=== PATIENT | female | born 1940 | race African-American/Black ===

== ENCOUNTER 2020-11-23 08:51 | Inpatient (IN) | payer OTHER, BC ==
[~2020-11-23] VITALS: Ht 170.2 cm; Wt 120.1 kg
[2020-11-23] VITALS (25 sets, daily range): BP systolic 88–208; BP diastolic 36–130
[2020-11-23 09:33] LABS: MCH 26.6 pg (26.0-34.0)
[2020-11-23 09:34] LABS: MCHC 30.9 g/dL (28.0-37.0); MCV 86.2 fL (80.0-100.0); RBC 2.34 mil/uL (4.20-5.00); WBC 6.4 thou/uL (4.0-11.0)
[2020-11-23 09:39] LABS: HEMATOCRIT 20.1 % (37.0-47.0); HEMOGLOBIN 6.2 gm/dL (12.0-15.0)
[2020-11-23 09:44] LABS: CALCIUM 8.1 mg/dL (8.5-10.1); CREATININE 1.8 mg/dL (0.6-1.0); POTASSIUM 3.7 mmol/L (3.5-5.1)
[2020-11-23 09:49] LABS: TOTAL BILIRUBIN 0.5 mg/dL (0.2-1.0); TOTAL PROTEIN 4.9 g/dL (6.4-8.2)
--- NOTE | 2020-11-23 12:33 | NUR ---
VAT ASKED TO PLACE ML ON PT IN ER THAT WAS BLEEDING. KRIS CEPHALIC WAS WIDELY PATENT WITH USG. 4FR POWER ML TRIMMED TO 10CM INSERTED TO 0CM WITH BRISK BR. PT TOLERATED WELL. ML RELEASED FOR IMMEDIATE USE PER PROTOCOL TO RN
--- NOTE | 2020-11-23 13:30 | NUR ---
1330 PT ADMITTED TO 244. PLACED ON TELEMETRY, ASSESSMENT PREFORMED.
--- NOTE | 2020-11-23 15:20 | P ---
[facility] [place] [address] PROCEDURE REPORT Name: LESLY MILLER Room #: 244-P ADM IN M.R.#: [id number] Admission: 11/23/20 Attend Phys: Porfirio Berry MD Discharge: Date of : 39 Report #: [id number] THIS REPORT FOR: cc: Deric Frank James D. DO McElhinney, Christian C. MD ~ DATE OF SERVICE: 11/23/2020 PROCEDURE PERFORMED: Upper endoscopy with bleeding control. HISTORY OF PRESENT ILLNESS: The patient is an 80-year-old female who this morning had a large bowel movement with bleeding, followed by multiple episodes of hematemesis. Reportedly, no previous history of GI bleed. The stool initially was dark red in color, began vomiting bright red blood. She does report some mild abdominal discomfort. She has been on Plavix. Her admit hemoglobin was 6.2. Previous COVID pneumonia on 10/13. No previous history of upper endoscopy per the patient. The patient is on 4 liters of O2 at her baseline. Plan is for upper endoscopy. DESCRIPTION OF PROCEDURE: The risks and benefits of the procedure were explained to the patient, those risks including but not limited to bleeding, perforation, the risk of sedation. She understood these risks and gave informed consent. The procedure was performed in the operating room under general anesthesia. Next, using a standard Olympus upper endoscope, the scope was placed in the patient's mouth and advanced under direct vision through the esophagus, stomach and into the second portion of the duodenum. Upon entering the esophagus, there was obvious bright red blood throughout. Multiple washings and aspirations were performed. No stigmata of bleeding from the esophagus was noted. Upon entering the stomach, multiple large clots were noted in the gastric fundus, which limited visualization as well as bright red blood within the fundus. This was aspirated away. The gastric antrum showed a large clot exiting the pylorus into the antrum. I was able to advance the scope into the duodenal bulb. Multiple washings and aspirations were performed eventually. 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 This was approximately 2.5 to 3 cm in diameter, had multiple black eschars, had an adherent clot. Eventually, I was able to remove this clot. There was only a small amount of bleeding as above was removed. I then injected the area with 2 mL of epinephrine. No further bleeding was noted. At this point, a 7-Tamazight bipolar cautery was then used to treat the area as well and no further bleeding after cauterization. The scope was then advanced into the second portion of the duodenum other than old blood. No other ulcerations were noted. The scope was then brought back up into the patient's stomach. I then aspirated away approximately 200 mL of old liquid blood, again large clots remained in the fundus. Areas of the gastric mucosa that were visualized appeared normal, but again visualization was limited due to clots. [address] [address] PROCEDURE REPORT Name: LESLY MILLER Room #: 244-P ADM IN M.R.#: [id number] Admission: 11/23/20 Attend Phys: Porfirio Berry MD Discharge: Date of : 39 Report #: [id number] At this point, the scope was then withdrawn and the procedure terminated. The patient tolerated the procedure well. IMPRESSION: 1. Large duodenal bulb ulcer involving the bulb and first portion with adherent clot, status post epinephrine and cautery as described above. 2. Large clots and old blood within the stomach. 3. Visualized portions of the stomach were normal. 4. Esophagus was normal. RECOMMENDATIONS: 1. Continue to monitor hemoglobin closely. 2. Continue PPI drip. 3. We will add Carafate in the near future, would continue n.p.o. for today. We will need close monitoring. Thank you for allowing me to participate in her care. <ELECTRONICALLY SIGNED> By: Balta Rock MD 11/23/20 1520 1218 1229 Balta Rock MD /nt
[2020-11-23 17:11] LABS: HEMOGLOBIN 5.8 gm/dL (12.0-15.0)
[2020-11-23] MEDS ORDERED: PLAVIX 75 MG TA75 MG PO (18:21)
[2020-11-23] MEDS ORDERED: ALLOPURINOL 10100 M1 PO (18:22)
[2020-11-23] MEDS ORDERED: CHILDREN'S ASPI81 M1 PO (18:22)
[2020-11-23] MEDS ORDERED: CARVEDILOL25 MG PO (18:23)
[2020-11-23] MEDS ORDERED: CYMBALTA60 MG PO (18:23)
[2020-11-23] MEDS ORDERED: FOLIC ACID1 MG PO (18:24)
[2020-11-23] MEDS ORDERED: IRON325 M1 PO (18:24)
[2020-11-23] MEDS ORDERED: LASIX 40 MG TAB40 MG PO (18:25)
[2020-11-23] MEDS ORDERED: NIFEDIPINE ER90 M1 PO (18:26)
[2020-11-23] MEDS ORDERED: HYDRALAZINE HC100 MG PO (18:26)
[2020-11-23] MEDS ORDERED: TRAMADOL 50 MG50 MG PO (18:27)
--- NOTE | 2020-11-23 18:28 | NUR ---
MED RECONCILIATION PREFORMED BASED OFF OF PHYSICIANS H&P. WILL NEED VALIDATION PER CORRECTION.
--- NOTE | 2020-11-23 18:29 | NUR ---
PT NOT PROGRESSION D/T CONTINUED DOWN TRENDING HGB AND ADMINISTRAION OF MORE BLOOD PRODUCTS. PLAN OF CARE IT TO CONTINUE MONITORING H&H AND VS.
--- NOTE | 2020-11-23 19:26 | NUR ---
PT ARRIVED TO THE UNIT FROM THE OR#3 WITH TWO STAFF MEMBER ESCORT ON A ED GURNEY WITH TELE MONITORING. UPON ARRIVAL PT WAS SITUATED, WOUND PICTURES WERE TAKEN AND SHE WAS FOUND TO HAVE SCATTERED WOUNDS ON HER BUTTOCKS WELL HER GROIN. HER OVERALL GROOMING WAS NOT WELL KEPT IT WAS EVIDENT BY SCATTERED WOUNDS AND MALODOR. PT WAS SEDATED AT THE TIME OF ARRIVAL SHE HAD BLOODY STOOL OVER HER, CHLORHEXEDINE BATH WAS GIVEN TO THE PT. SHE ARRIVED ON 10L/NC AND WAS TOLD TO THIS RN THAT SHE WAS ON 4L/NC AT THE ED. ORDERS FOR THE PT ARRIVED LATER, SHE WAS SEEN BY THE GI GROUP. PT'S SON WAS UPDATED, APPARENTLY JOEY [facility] TOLD THE SON THAT PT WENT TO RESEARCH AND WAS WORRIED ALL DAY. RN PROVIDED UPDATE WELL RECEIVED CONSENT FOR TWO MORE UNITS OF PRBC INFUSION. PT HAD NOT ARRIVED WITH ANY NOTABLE BELONGINGS. PT HAD A HARDENED MASS AT THE R SIDE OF STOMACH WHICH WAS PAINFUL TO THE TOUCH, STATED THAT IT WAS DEPENDANT ANSARCA. ZOFRAN WAS ADMINISTERED X1. ADMISSION WAS DONE BY ORIENTING RN. PT REMAINS ON NPO AT THIS TIME. RN SIGNING OFF
[2020-11-23] MEDS ORDERED: ARIMIDEX1 MG PO (23:02)
[2020-11-23] MEDS ORDERED: AYR SALINE50 ML NASAL (23:03)
[2020-11-23] MEDS ORDERED: COMBIVENT INH (23:04)
[2020-11-23] MEDS ORDERED: EUCERIN CREME57 GM TOP (23:07)
[2020-11-23] MEDS ORDERED: HUMALOG100 UNIT/1 SUBQ (23:07)
[2020-11-23] MEDS ORDERED: MECLIZINE HCL25 M1 PO (23:08)
[2020-11-23] MEDS ORDERED: BIDIL TABLET1 EACH PO (23:08)
[2020-11-23] MEDS ORDERED: NYSTATIN1 EAC2 TOP (23:10)
[2020-11-24] VITALS (21 sets, daily range): BP systolic 126–207; BP diastolic 37–87
[2020-11-24 05:42] LABS: URINE BILIRUBIN NEGATIVE (Negative); URINE BLOOD NEGATIVE (Negative); URINE CLARITY CLOUDY; URINE COLOR YELLOW; URINE GLUCOSE-RANDOM* NEGATIVE (Negative); URINE KETONES NEGATIVE (Negative); URINE NITRITE-REFLEX NEGATIVE (Negative); URINE PROTEIN (DIPSTICK) TRACE (Negative); URINE SPECIFIC GRAVITY 1.025 (1.005-1.035); URINE UROBILINOGEN 0.2 E.U./dl (0.2-1.0)
[2020-11-24 05:49] LABS: HEMATOCRIT 23.4 % (37.0-47.0); HEMOGLOBIN 7.6 gm/dL (12.0-15.0); MCH 28.5 pg (26.0-34.0); MCHC 32.4 g/dL (28.0-37.0); MCV 87.8 fL (80.0-100.0); RBC 2.66 mil/uL (4.20-5.00)
[2020-11-24 05:49] LABS: URINE LEUKOCYTES-REFLEX 3+ (Negative)
[2020-11-24 06:03] LABS: CALCIUM 7.6 mg/dL (8.5-10.1); CREATININE 1.8 mg/dL (0.6-1.0); POTASSIUM 3.7 mmol/L (3.5-5.1)
[2020-11-24 06:13] LABS: CASTS None Seen /LPF (None Seen); SQUAMOUS 0-3 Few /LPF (0-3)
[2020-11-24 06:14] LABS: BACTERIA-REFLEX >30 Many /HPF (None Seen); CRYSTALS None Seen /LPF (None Seen); MUCUS 0-3 Light strn/LPF (None Seen); URINE RBC 0-2 Rare /HPF (0-2); URINE WBC-REFLEX >25 Many /HPF (0-5); WBC CLUMPS Moderate (None Seen)
[2020-11-24 16:59] LABS: HEMATOCRIT 22.3 % (37.0-47.0); HEMOGLOBIN 7.3 gm/dL (12.0-15.0)
--- NOTE | 2020-11-24 17:00 | NUR ---
Case opened to follow for dc planning. Pt is a&ox4 and indicates that she has been at [facility] for 3 weeks rehabing. Her goal is to return home. She lives alone. She has had hh per [facility] in the past. She does not want to return to SNF if she can go back home with HH. She is not sure if her son would be agreeable as she does live alone. Pt is being treated for GI bleed and GI consult is in progress. Will ask for therapy evals and update [facility] should she need additional skilled rehab at wi. Department Director did offer a SNF listing should she want to consider another SNF. She declined but noted that she has [employer] as her secondary ins;medicare is primary. Will follow along.
[2020-11-25 05:04] VITALS: BP 142/60
[2020-11-25 05:38] LABS: HEMATOCRIT 21.7 % (37.0-47.0); HEMOGLOBIN 7.1 gm/dL (12.0-15.0); MCH 29.1 pg (26.0-34.0); MCHC 32.7 g/dL (28.0-37.0); MCV 88.8 fL (80.0-100.0); RBC 2.45 mil/uL (4.20-5.00); RDW 17.5 % (10.5-14.5); WBC 9.7 thou/uL (4.0-11.0)
[2020-11-25 05:40] LABS: CALCIUM 7.8 mg/dL (8.5-10.1); CREATININE 1.7 mg/dL (0.6-1.0); POTASSIUM 3.8 mmol/L (3.5-5.1)
[2020-11-25 07:37] VITALS: BP 155/52
--- NOTE | 2020-11-25 07:48 | NUR ---
ASSESSMENTS CHARTED, MEDS CHARTED GIVEN. PATIENT RESTING IN BED DURING SHIFT. PATIENT STATES SHE HAS NOT GOTTEN OUT OF BED IN A WHILE. ON PROTONICS AND NORMAL SALINE DRIPS DURING SHIFT. PATIENT ON 6 LITERS DURING SHIFT. PRESSURE WOUNDS ON BUTTOCKS AND THIGHS WERE WASHED AND TREATED WITH BARRIER CREAM. FALL PRECAUTIONS IN PLACE DURING SHIFT.
[2020-11-25 11:43] VITALS: BP 143/57
--- NOTE | 2020-11-25 11:54 | NUR ---
Case discussed with the care team. Advancing diet and therapy working with the pt. They are recommending returning to snf for continued therapies as the pt would need to be indep to dc home with josep. Anika of updated. Dc life care planner to fax clinical updated. Possible dc Sat/Sun. Anika's liason Riri can be reached at [phone] to coordinate. A chart copy would be needed and orders faxed to the facility [phone] and report called by nursing. Pt/son updated on recommendations for return to the SNF and agreeable.
--- NOTE | 2020-11-25 12:23 | NUR ---
PT ALERT AND ORIENTED TIMES FOUR. VSS, PROTONIX AND IVF INFUSING PER ORDER. SILVA TO DD. PT DENIES PAIN AT THIS TIME. PT TOLERATES MEDS AND FULL LIQUID DIET. PT WORKED WELL WITH PT/OT TODAY AND IS UP SITTING IN THE CHAIR. PT PROGRESSING TOWARDS POC GOALS. POSSIBLE PLANS TO DISCHARGE BACK TO SNF TOMORROW.
--- NOTE | 2020-11-25 14:24 | NUR ---
FAXED REFERRAL TO [facility] AND [facility]. YVETTE/ADMISSIONS OF [facility] CONFIRMED THEY RECEIVED AND CAN ACCEPT PATIENT PER BIOINFORMATICS SUPPORT SPECIALIST. WILL CONFIRM WITH [facility]/ADMISSIONS OF [facility] THAT THEY RECEIVED AND THEIR BED AVAILABILITY. [facility] P [phone]; FAX [phone] [facility] P [phone]; FAX [phone]
[2020-11-25 15:49] LABS: HEMATOCRIT 25.8 % (37.0-47.0); HEMOGLOBIN 8.1 gm/dL (12.0-15.0)
[2020-11-25 16:25] VITALS: BP 159/45
[2020-11-25 19:25] VITALS: BP 143/48
[2020-11-25 23:25] VITALS: BP 132/47
[2020-11-26] VITALS (8 sets, daily range): BP systolic 100–151; BP diastolic 42–56
--- NOTE | 2020-11-26 03:27 | NUR ---
PT IS ALERT AND ORIENTED X4. LUNGS ARE DIMINISHED. ON 4LITERS NASAL CANULA. SINUS RHYTHM ON THE TOWEL ROLLING MACHINE OPERATOR. TURN Q2 HOURS AND Z-GAURD TO COCCYX AREA. REPOSITIOIN WITH PILLOWS. SILVA TO DD NOTED NO BM NOTED. BILATERAL FEET EDEMA NOTED 3 PLUS. PAIN MEDS GIVEN FOR PAIN IN COCCYX. SLEEPING AFTER MEDS GIVEN. CALL LIGHT WITHIN REACH IF NEEDS ASSISTANCE PER NURSING
[2020-11-26 04:17] LABS: RDW 17.7 % (10.5-14.5)
[2020-11-26 04:18] LABS: HEMOGLOBIN 6.8 gm/dL (12.0-15.0); MCHC 32.3 g/dL (28.0-37.0); MCV 89.7 fL (80.0-100.0); RBC 2.34 mil/uL (4.20-5.00)
[2020-11-26 16:16] LABS: HEMATOCRIT 26.6 % (37.0-47.0); HEMOGLOBIN 8.5 gm/dL (12.0-15.0)
--- NOTE | 2020-11-26 19:38 | NUR ---
ASSUMMED PT CARE AT APPROXIMATELY 0700. PT A&O X4. ASSESSMENT CHARTED. FALL PRECAUTIONS IN PLACE. PT DENIES HAVING CHEST PAIN. PT DENIES HAVING SOB. PT STATED SHE HAD CHRONIC BACK AND HIP PAIN. PT RECEIVED ANALGESICS. PT STATED ANALGESICS HELPED RELIEVE PAIN. INFORMED GI OF LOW HGB. NEW ORDERS RECEIVED TO TRANSFUSE 2 UNITS BLOOD. INFORMED PT ABOUT POC. PT STATED UNDERSTANDING AND DENIED HAVING FURTHER CONCERNS. INFORMED GI OF PT HAVING MODERATE AMOUNT OF BLOOD AT 1800. GI STATED NO NEW ORDERS AND TO CONTINUE TO MONITOR. HGB STABLE. PT COMFORTABLE IN BED. PT DENIES HAVING FURTHER CONCERNS.
[2020-11-27 04:15] VITALS: BP 141/71
[2020-11-27 07:41] VITALS: BP 145/56
--- NOTE | 2020-11-27 07:52 | NUR ---
ASSESSMENTS CHARTED,MEDS CHARTED GIVEN. PATIENT RESTING IN BED. C/O PAIN ON BUTTOCKS, WOUNDS WERE CLEANED AND DRESSED WITH ZGUARD. ON PROTONIX DRIP AND NORMAL SALINE AT 75ML/HR. RECEIVED 2 UNITS OF BLOOD YESTERDAY. PATIENTS BED IS BROKEN HEAD WILL NOT RISE. NEED NEW BED TO TRANSFER PATIENT TO. PATIENT HOLDING OFF AM PO MEDS UNTIL SHE CAN GET HER HEAD ELEVATED. WHEN PATIENT IS STABLE, [facility].
[2020-11-27 10:52] LABS: RBC 3.25 mil/uL (4.20-5.00)
[2020-11-27 10:59] LABS: CALCIUM 8.3 mg/dL (8.5-10.1); CREATININE 1.6 mg/dL (0.6-1.0)
[2020-11-27 11:00] LABS: HEMATOCRIT 30.5 % (37.0-47.0); HEMOGLOBIN 9.8 gm/dL (12.0-15.0); MCHC 31.9 g/dL (28.0-37.0); MCV 93.8 fL (80.0-100.0); RDW 17.8 % (10.5-14.5); WBC 7.9 thou/uL (4.0-11.0)
[2020-11-27 11:30] VITALS: BP 139/66
--- NOTE | 2020-11-27 13:09 | NUR ---
CARE ASSUMED AT 0700, PT ALERT AND ORIENTED X4, DENIES ANY NAUSEA AND VOMITTING. PT COMPLAINS OF BUTTOCKS PAIN, PAIN MED GIVEN PER ORDER.REPOSITION EVERY 2 HOURS. NO BLOODY BM SO FAR TTHIS SHIFT. PT HAS PROTONIX DRIP AND NS RUNNING. ASSESSMENT AND VS STABLE. USES CALL LIGTH APPROPRIATELY. FALL PRECAUTIONS IN PLACE. DENIES ANY NEEDS JYOTHI. WILL CONTINUE TO MONITOR.
[2020-11-27 16:23] VITALS: BP 138/63
--- NOTE | 2020-11-27 16:50 | NUR ---
PATIENT NOT DISCHARGING TO [facility] TODAY DUE TO CHANGE OF STATUS. DIMINISHING CONDITIONS INCLUDING LOW Hcg AND WOUND CARE CONSULT. CM DIRECTOR CONTACTED [facility]. [facility] P [phone]; FAX [phone]
[2020-11-27 20:30] VITALS: BP 192/76
[2020-11-28] VITALS (7 sets, daily range): BP systolic 117–183; BP diastolic 57–90
--- NOTE | 2020-11-28 04:44 | NUR ---
ASSUMED PT CARE AT 1900. VSS. PT RESTING WELL. REFUSED TURNS. NO ISSUES OVER NOC, WILL CONTINUE TO MONITOR
[2020-11-28 05:49] LABS: CALCIUM 8.8 mg/dL (8.5-10.1); CREATININE 1.3 mg/dL (0.6-1.0); POTASSIUM 3.9 mmol/L (3.5-5.1)
--- NOTE | 2020-11-28 09:47 | NUR ---
Pt spoke with Dilia Reddy FOOD MIXER ASSEMBLER, and waas given facilities list, and BPCI letter. No facility chosen at this time.
--- NOTE | 2020-11-28 13:33 | NUR ---
ASSESSED PT FOR A PIV FOR IV ACCESS. PT HAS MULTIPLE VESSEL OCCLUSIONS IN BILAT ARMS WITH EDEMA. RECOMMEND A DX US SCAN AND A TICC IF IV ACCESS IS NEEDED. ADVISED RN
--- NOTE | 2020-11-28 15:54 | NUR ---
met with patient and alerted plan for discharge to [facility] in am.
--- NOTE | 2020-11-28 18:55 | NUR ---
DISCONTINUES SALINE LOCK HERSELF. IV TEAM ADVISES SHE HAS CLOTS IN BOTH ARMS. DR. JUDGE CALLED FOR ORAL ANTIBIOTIC. MOVED FROM BED TO SITTING POSITION TO BEDSIDE CHAIR, THEN BACK TO BED. SEVERAL TELEPHONE CONVERSATIONS WITH HER ADULT SON TO UPDATE. FALL PRECAUTIONS IN PLACE.
[2020-11-29 02:46] VITALS: BP 158/60
--- NOTE | 2020-11-29 03:51 | NUR ---
Assumed pt care at the chnage of shift, pt is awake, alert and oriented, vss, no iv access, ultrasound of the bilateral upper extremities obtained, atempted to get iv with no success, denies pain or sob, remains on 2l nc, bs stable, advanced to full liquid diet, meds given as per mar, denies any concerns at this time, will continue to monitor and follow poc, plan to dc to [facility] today
[2020-11-29 07:57] LABS: HEMATOCRIT 31.9 % (37.0-47.0); HEMOGLOBIN 10.2 gm/dL (12.0-15.0); MCH 29.1 pg (26.0-34.0); MCHC 31.9 g/dL (28.0-37.0); MCV 91.1 fL (80.0-100.0); RBC 3.5 mil/uL (4.20-5.00); RDW 17.3 % (10.5-14.5); WBC 8.1 thou/uL (4.0-11.0)
[2020-11-29 08:00] VITALS: BP 143/59
[2020-11-29 08:03] LABS: CALCIUM 9.3 mg/dL (8.5-10.1); CREATININE 1.3 mg/dL (0.6-1.0); POTASSIUM 3.8 mmol/L (3.5-5.1)
--- NOTE | 2020-11-29 09:19 | NUR ---
ASSUMED CARE AT 0700. PATIENT'S SON, TONIA, CALLED AND WAS SPOKEN TO FROM [id number] AND HE WAS UPDATED AND EDUCATED ON THE PATIENT'S CONDITION AND PLAN OF CARE.
--- NOTE | 2020-11-29 10:12 | HC ---
[facility] [place] [address] CONSULTATION Name: LESLY MILLER Room #: 206-P ADM IN M.R.#: [id number] Admission: 11/23/20 Attend Phys: Porfirio Berry MD Discharge: Date of : 39 Report #: [id number] THIS REPORT FOR: cc: Deric Frank James D. DO Althoff, Jeffrey R. MD ~ DATE OF SERVICE: 11/28/2020 CHIEF COMPLAINT: Gluteal ulcerations. HISTORY OF PRESENT ILLNESS: This is an 80-year-old female patient who lives in a shelter. She was admitted with rectal bleeding and hematemesis. Along the course of her stay someone noted that she had gluteal ulcerations and I have been consulted to see her today. The patient states that she has some discomfort there. Denies other complaints at this time. PAST MEDICAL HISTORY: Positive for hypertension as well as general deconditioning. The patient cannot provide much information about herself at this time. ALLERGIES: LISINOPRIL AND SPIRONOLACTONE. MEDICATIONS: Hydralazine, hydrocodone, meropenem, ondansetron, Protonix, sucralfate, carvedilol, clopidogrel, duloxetine, ferrous sulfate, folic acid, furosemide, insulin, nifedipine, and tramadol. SOCIAL HISTORY: The patient lives a nursing care facility. No recent history of alcohol or tobacco use. FAMILY HISTORY: Unknown. REVIEW OF SYSTEMS: CONSTITUTIONAL: The patient denies fever, chills or weight loss. NEUROLOGICAL: The patient denies focal weakness. ENT: The patient denies earache, nasal drainage or sore throat. CARDIOVASCULAR: The patient denies chest pain, palpitations or diaphoresis. PULMONARY: The patient denies cough or shortness of breath. GASTROINTESTINAL: The patient denies nausea, vomiting, diarrhea or abdominal pain. She did have hematemesis and some rectal bleeding on admission several days ago. GENITOURINARY: Denies frequency, urgency or dysuria. ORTHOPEDIC: The patient complains of pain in the gluteal region, notes swelling in her lower extremities. Other systems in a 14-point review of systems are negative. [address] [address] CONSULTATION Name: LESLY MILLER Room #: 206-P [facility] IN M.R.#: [id number] Admission: 11/23/20 Attend Phys: Porfirio Berry MD Discharge: Date of : 39 Report #: [id number] PHYSICAL EXAMINATION: VITAL SIGNS: At time include temperature 37.1, pulse 84, respiratory rate 16, and blood pressure __. GENERAL: This is a chronically ill-appearing female patient who appears to be in minimal distress. HEENT: Head normocephalic. Nose and throat are clear. NECK: Supple. LUNGS: Diminished. HEART: Regular, without murmur. ABDOMEN: Obese, soft, nontender. EXTREMITIES: She has mild skin fold dermatitis. Sacral-gluteal region demonstrates multiple scattered small superficial stage 3 pressure ulceration to the gluteal regions bilaterally. These do not appear to have occurred over bony prominences; however. Lower extremities demonstrate 3+ edema with some dry skin hyperkeratosis and some callusing on her heels. NEUROLOGIC: The patient is alert, level of orientation is difficult to assess. LABORATORY DATA: Include white blood cell count is 7.9 with hemoglobin of 9.8. Sodium is 145, potassium 3.9, chloride 110, CO2 of 28, BUN 27, creatinine 1.3, and glucose of 81. CLINICAL IMPRESSION: 1. Stage 3 gluteal pressure ulcerations, multiple scattered shallow. 2. Recent gastrointestinal bleeding. 3. Acute kidney injury. 4. Generalized debility. RECOMMENDATIONS: At this point in time, we will recommend moisture barrier cream with zinc oxide to the gluteal and sacral region twice daily, low air loss mattress with q. 2 hour turning and repositioning. She will need ongoing nutritional support. Continue medical management of her underlying medical issues. I appreciate being asked to see her in consultation. <ELECTRONICALLY SIGNED> By: Kavon Manzo MD 11/29/20 1012 1715 1944 Kavon Manzo MD /nt
[2020-11-29] MEDS ORDERED: PROTONIX 20 MG20 M1 PO (11:27)
[2020-11-29] MEDS ORDERED: CARAFATE 1 GM TA1 G1 PO (11:27)
[2020-11-29] MEDS ORDERED: CARVEDILOL25 MG PO (11:27)
--- NOTE | 2020-11-29 13:55 | NUR ---
PT DISCHARGING TODAY TO [facility] FAXED DC ORDERS/SUMMARY SPOKE WITH [facility]GG IN ADM SHE RECEIVED ORDERS AND ARRANGED TRANSPORT BY [facility] FOR [id number]. FAMILY NOTIFIED BY JULIANN (KYLAH) AND UNIT NOTIFIED CHART COPY PER US. RN TO CALL REPORT TO [phone].
--- NOTE | 2020-11-29 15:21 | NUR ---
ASSUMED CARE AT 0700. PATIENT DISCHARGED TO [facility] AT 1519. PATIENT LEFT WITH TRANSPORT WITH ALL BELONGINGS ACCOUNTED FOR.
== END 2020-11-29 15:19 | DRG 377 ==
LOC: ER 08:51 → ICU 13:50 → 2N 13:50 → ICU 11-24 06:17 → 2N 11-24 07:15
PROVIDERS: Emergency Medicine; Internal Medicine; ADMIT Hospitalist; ATTEND Hospitalist
PROC: 30233N1 Transfusion of Nonautologous Red Blood Cells into Peripheral Vein, Percutaneous Approach (ICD-10-PCS; principal; 2020-11-23)
PROC: 0W3P8ZZ Control Bleeding in Gastrointestinal Tract, Via Natural or Artificial Opening Endoscopic (ICD-10-PCS; principal; 2020-11-23)
PROC: B54MZZA Ultrasonography of Right Upper Extremity Veins, Guidance (ICD-10-PCS; principal; 2020-11-23)
PROC: 05HD33Z Insertion of Infusion Device into Right Cephalic Vein, Percutaneous Approach (ICD-10-PCS; principal; 2020-11-23)
DX: K27.4 Chronic or unspecified peptic ulcer, site unspecified, with hemorrhage (principal); L89.153 Pressure ulcer of sacral region, stage 3; N17.0 Acute kidney failure with tubular necrosis; E43 Unspecified severe protein-calorie malnutrition; D62 Acute posthemorrhagic anemia; Z68.41 Body mass index [BMI] 40.0-44.9, adult; M10.9 Gout, unspecified; E78.5 Hyperlipidemia, unspecified; N18.9 Chronic kidney disease, unspecified; I25.10 Atherosclerotic heart disease of native coronary artery without angina pectoris; I12.9 Hypertensive chronic kidney disease with stage 1 through stage 4 chronic kidney disease, or unspecified chronic kidney disease; I27.20 Pulmonary hypertension, unspecified; M81.0 Age-related osteoporosis without current pathological fracture; R63.4 Abnormal weight loss; G47.00 Insomnia, unspecified; F41.1 Generalized anxiety disorder; E66.01 Morbid (severe) obesity due to excess calories; Z20.822 Contact with and (suspected) exposure to COVID-19; Z88.8 Allergy status to other drugs, medicaments and biological substances; Z85.3 Personal history of malignant neoplasm of breast; Z86.16 Personal history of COVID-19; Z79.899 Other long term (current) drug therapy; Z79.01 Long term (current) use of anticoagulants; Z23 Encounter for immunization
CPT/HCPCS: 10078; 10081; 27000; 62110; 62900

== ENCOUNTER 2020-12-12 18:27 | Inpatient (IN) | payer OTHER, BC ==
[~2020-12-12] VITALS: Ht 165.1 cm; Wt 126.6 kg
[~2020-12-12 18:27] MED LIST: ALLOPURINOL 10100 M1 PO; ARIMIDEX1 MG PO; AYR SALINE50 ML NASAL; BIDIL TABLET1 EACH PO; CARAFATE 1 GM TA1 G1 PO; CARVEDILOL25 MG PO; CHILDREN'S ASPI81 M1 PO; COMBIVENT INH; CYMBALTA60 MG PO; EUCERIN CREME57 GM TOP; FOLIC ACID1 MG PO; HUMALOG100 UNIT/1 SUBQ; HYDRALAZINE HC100 MG PO; IRON325 M1 PO; LASIX 40 MG TAB40 MG PO; MECLIZINE HCL25 M1 PO; NIFEDIPINE ER90 M1 PO; NYSTATIN1 EAC2 TOP; PLAVIX 75 MG TA75 MG PO; PROTONIX 20 MG20 M1 PO; TRAMADOL 50 MG50 MG PO
[2020-12-12 18:28] VITALS: BP 104/57
[2020-12-12] MEDS ORDERED: VANCOCIN 125 M125 M1 PO (19:20)
[2020-12-12 19:48] LABS: APTT 29.1 Seconds (24.5-32.8); PROTIME 10.4 Seconds (9.3-11.4)
[2020-12-12 20:17] LABS: URINE BILIRUBIN 2+ (Negative); URINE BLOOD TRACE (Negative); URINE CLARITY CLEAR; URINE COLOR YELLOW; URINE GLUCOSE-RANDOM* NEGATIVE (Negative); URINE KETONES TRACE (Negative); URINE NITRITE-REFLEX NEGATIVE (Negative); URINE PROTEIN (DIPSTICK) TRACE (Negative); URINE SPECIFIC GRAVITY >= 1.030 (1.005-1.035); URINE UROBILINOGEN 0.2 E.U./dl (0.2-1.0)
[2020-12-12 20:24] LABS: URINE LEUKOCYTES-REFLEX 1+ (Negative)
[2020-12-12 20:28] LABS: CASTS None Seen /LPF (None Seen); SQUAMOUS 0-3 Few /LPF (0-3); URINE RBC 3-10 Few /HPF (0-2); URINE WBC-REFLEX 6-15 Few /HPF (0-5)
[2020-12-12 20:29] LABS: BACTERIA-REFLEX 1-9 Few /HPF (None Seen); CRYSTALS None Seen /LPF (None Seen); MUCUS 0-3 Light strn/LPF (None Seen)
[2020-12-12 20:30] LABS: YEAST-REFLEX Present (None Seen)
[2020-12-12 20:53] LABS: HEMATOCRIT 31.7 % (37.0-47.0); HEMOGLOBIN 10.1 gm/dL (12.0-15.0); MCH 28.9 pg (26.0-34.0); MCV 90.4 fL (80.0-100.0); PLATELET COUNT 324 thou/uL (150-400); RBC 3.51 mil/uL (4.20-5.00); RDW 18.4 % (10.5-14.5); WBC 21.1 thou/uL (4.0-11.0)
[2020-12-12 21:02] LABS: CALCIUM 9.1 mg/dL (8.5-10.1); CREATININE 4.3 mg/dL (0.6-1.0); POTASSIUM 3.7 mmol/L (3.5-5.1)
[2020-12-12 21:08] LABS: ALBUMIN 1.7 g/dL (3.4-5.0); TOTAL BILIRUBIN 0.5 mg/dL (0.2-1.0); TOTAL PROTEIN 5.3 g/dL (6.4-8.2)
[2020-12-12 21:46] LABS: ANISOCYTOSIS 2+; HYPOCHROMASIA 2+; POLYCHROMASIA 1+
[2020-12-12 22:47] VITALS: BP 127/49; BP 99/47
[2020-12-12 23:35] VITALS: BP 99/59
--- NOTE | 2020-12-13 01:34 | NUR ---
Admission completed. Pt sleeping on and off. Denies pain. Too sleepy to sign consent forms. Vitals stable-BP on the softer side. Afebrile. Pt is on 02/4l/nc and satting at >96%. no signs of resp distress. She just got a breathing treatment. Pt continues to have loose stools due to cdiff. Barrier cream applied to excoriated botton. open spot noted to left gluteal fold, pic will be taken.Pt is on IV fluids as well as ABTS.Scds applied.Fall prec in place.Call light within reach.Will continue with POC till EOS.
--- NOTE | 2020-12-13 07:03 | EKG ---
[place] [address] [address] [address] ELECTROCARDIOGRAM REPORT Name: LESLY MILLER Room #: 458-P ADM IN M.R.#: [id number] Admission: 12/12/20 Attend Phys: Trevor North Discharge: Date of : 39 Report #: [id number] [facility] ED Test Date: 2020-12-12 Test Time: 19:12:57 Pat Name: LESLY MILLER Department: Room: 458 Gender: F Funeral Home Manager: SAIRA : 1940 Requested By: Sumeet Irving Order Number: [id number] MD: Devin Samson Measurements Intervals [place] Rate: 111 P: AL: QRS: -17 QRSD: 90 T: 140 QT: 329 QTc: 447 Interpretive Statements Atrial fibrillation Borderline left axis deviation Low voltage, extremity leads Anteroseptal infarct, old Nonspecific T abnormalities, lateral leads No previous ECG available for comparison Electronically Signed On 12-13-2020 7:03:48 PROCESS STEWARD by Devin Samson [email or web address] <ELECTRONICALLY SIGNED> By: Devin Samson MD, [facility] 12/13/20702 11 11 Devin Samson MD, FACC /EPI
[2020-12-13 07:49] VITALS: BP 109/59
--- NOTE | 2020-12-13 09:37 | NUR ---
RD consult received for pt with chronic gluteal wound. Recently here early Nov with duodenal ulcer. Hx DM. Class III extreme obesity, BMI 46.5. Wts have been variable this past month 250-279 lb. Admit with TAVO, cdiff. Appetite fair. Will send Ensure Max 1x daily which provides 160 page and 30g protein. Low nutrition risk with appropriate nutrition interventions implemented
--- NOTE | 2020-12-13 13:34 | NUR ---
PT ADMITTED RLEATED TO ACUTE RENAL FAILURE/TAVO, CDIFF, PNA. CM REVIEWED CHART AND SPOKE WITH CARE TEAM. CM ATTEMTPED PC TO PT'S ROOM THIS DAY PT IS IN ISO FOR CDIFF. NO ANSWER. CM CALLED AND SPOKE WITH PT'S SON. HE INDICATED THAT PT HAD BEEN SKILLED OVER AT [facility]. SHE HAD GONE THERE FROM [facility] ON 11/29 HAVING BEEN AT A [facility] SKILLED PRIOR TO THAT. HE INDICATED THAT PT HAD BEEN LIVING IN A HOUSE ALONE PRIOR TO SKILLED STAYS WITH 1 STEPS TO ENTER AND NONE INSIDE. HE INDICATED THAT SHE HAD USED A WALKER TO ASSIST WITH MOBILITY. HE INIDCATED PT HAS EXPRESSED DESIRE TO BE ABLE TO RETURN HOME ONCE MEDICALLY STABLE BUT HE ISN'T SURE HOW REALISTIC THAT IS BASED ON HER MOBILITY. CM INDICATED THAT PT AND OT TO ASSESS AND MAKE RECOMMENDATIONS. HE INDICATED HE PLANS TO VISIT MOTHER HERE TOMORROW. CM TO FOLLOW INDICATED WITH DC PLANNING. PT HAS GI, ID, NEPH ALL CONSULTED.
--- NOTE | 2020-12-13 15:36 | NUR ---
VAT CONSULTED FOR ML. PT HAS VERY LARGE UPPER ARMS, DIFFICULTY FINDING VENOUS ACCESS. 4FR POWER ML TRIMMED TO 11CM INSERTED IN NAZ CEPHALIC TO 0CM. PT TOLERATED WELL. ML RELEASED FOR IMMEDIATE USE PER PROTOCOL.
[2020-12-13 15:47] LABS: HEMATOCRIT 32.7 % (37.0-47.0); HEMOGLOBIN 10.4 gm/dL (12.0-15.0); MCH 28.6 pg (26.0-34.0); MCHC 31.8 g/dL (28.0-37.0); MCV 90.1 fL (80.0-100.0); RBC 3.63 mil/uL (4.20-5.00); RDW 18.3 % (10.5-14.5); WBC 20.5 thou/uL (4.0-11.0)
--- NOTE | 2020-12-13 15:47 | NUR ---
FAXED CLINICAL UPDATE TO [facility] RECEIVED CONFIRMATION AND LEFT MSG WITH GREGG IN ADM.
[2020-12-13 15:48] VITALS: BP 111/59
--- NOTE | 2020-12-13 15:53 | NUR ---
ASSUMED CARE OF PATIENT AFTER REPORT. ASSESSMENT CHARTED. MEDICATIONS ADMINISTERED PER EMAR; CRUSHED IN APPLESAUCE. VSS. PATIENT IS ALERT AND ORIENTED TO SELF, PLACE AND SITUATION BUT FORGETFUL. MAKES NEEDS KNOWN. C/O PAIN AND DISCOMFORT ON BOTTOM. RELIEF NOTED AFTER REPOSITIONING. NEEDING ENCOURAGEMENT W EATING. FSBS LOW THIS SHIFT. PATIENT OFFERED SNACKS. SON CONTACTED AND UPDATED W PATIENT STATUS. LABS REDRAWN. NEW IV ACCESS; L UA MIDLINE W ABX INFUSING. PATIENT TIRED THIS SHIFT. CHANGED MULTIPLE TIMES. C-DIFF POSITIVE AND PRECAUTIONS TAKEN. AWAITING ANY NEW ORDERS FOR PATIENT. FALL PRECAUTIONS IN PLACE. WILL CONTINUE TO MONITOR AND FOLLOW PLAN OF CARE
--- NOTE | 2020-12-13 16:36 | HC ---
[facility] [place] [address] CONSULTATION Name: LESLY MILLER Room #: 458-P ADM IN M.R.#: [id number] Admission: 12/12/20 Attend Phys: Trevor North Discharge: Date of : 39 Report #: [id number] THIS REPORT FOR: cc: Hilario Mcpherson MD, Christopher B. MD Barry, Joseph W. MD ~ DATE OF SERVICE: 12/13/2020 INFECTIOUS DISEASE CONSULTATION ATTENDING PHYSICIAN: Dr. North. REASON FOR EVALUATION: Clostridium difficile colitis, pneumonitis, and complicated urinary tract infection. HISTORY OF SUBJECTIVE: Chart reviewed, patient examined. This is an 80-year-old woman with extensive medical history, was admitted in transfer from facility with complaints of progressive weakness a result of that labs were obtained, which showed a creatinine 4.1, marked leukocytosis with white count of 21,000. It is notable had been diagnosed with C. diff colitis. It is difficult to ascertain details of her history due to some mild encephalopathy. It is notable that she was hospitalized earlier this month with upper gastrointestinal hemorrhage and was confirmed to have a duodenal ulcer, which was cauterized October of this year, was diagnosed with COVID-19 infection as well. Recent testing was negative. During the evaluation in addition to the above was found to have urinalysis, which showed moderate pyuria. Albumin of 1.7. Lactic acid 1.2. CT of the abdomen and pelvis did show changes consistent with pancolitis. She was empirically started on oral vancomycin 125 p.o. 4 times a day and ceftriaxone. ALLERGIES: LISINOPRIL, SPIRONOLACTONE. CURRENT MEDICATIONS: Include ceftriaxone, allopurinol, duloxetine, ferrous sulfate, carvedilol, insulin lispro sliding scale, sucralfate, pantoprazole, oral vancomycin 125 p.o. q.i.d., ipratropium and albuterol inhaler, p.r.n. analgesics and antiemetics. PAST MEDICAL HISTORY: As described above, diabetes mellitus complicated by vasculopathy, has known hypertension, coronary artery disease, hyperlipidemia, chronic renal insufficiency, breast cancer, history of gout, previous COVID-19 infection with pneumonia, arthritis, chronic anemia, depression. SOCIAL HISTORY: Nonsmoker, no ethanol, no illicit drug use. FAMILY HISTORY: Noncontributory. [address] [place] [address] CONSULTATION Name: LESLY MILLER Room #: 458-P [facility] IN M.R.#: [id number] Admission: 12/12/20 Attend Phys: Trevor North Discharge: Date of : 39 Report #: [id number] REVIEW OF SYSTEMS: Otherwise, unremarkable. Denies significant pulmonary-related complaints, although she is on supplemental oxygen at 3 liters per nasal cannula. PHYSICAL EXAMINATION: GENERAL: Appears chronically ill and although she is obese, appears undernourished, [id number] distress. She is mildly encephalopathic. VITAL SIGNS: Temperature 97.4, pulse 110, respirations 18, blood pressure 109/59. SKIN: Warm, dry, no rashes. HEENT: Normocephalic. Extraocular muscles intact. NECK: Supple. Nasal cannula in place. LUNGS: Diminished breath sounds. Few scattered crackles at the bases. HEART: Regular, tachycardic. Has a soft systolic murmur. ABDOMEN: Mildly distended and somewhat firm. No overt peritoneal signs. GENITOURINARY AND RECTAL: Deferred. LABORATORY DATA: Blood cultures sterile thus far. CBC: White count 21.1, H and H 10.1 and 31.7, platelets of 324, CT abdomen and pelvis pancolitis, consulting right lower lobe infiltrate and medial left lower lobe infiltrate, some small pleural effusions, cardiomegaly with severe coronary artery calcification. Lactic acid 1.2. Electrolytes: Sodium 137, potassium 3.7, chloride 102, bicarbonate 27, anion gap of 8, BUN and creatinine 54 and 4.3, glucose of 77. AST of 22, ALT of 18, albumin 1.7, total protein 5.3. Estimated GFR of 12. Urinalysis, 1+ leukocytes, 6-15 white cells, evidence of budding yeast. ASSESSMENT AND PLAN: Clostridium difficile colitis based on history, I do not have the documentation. Secondly, likely complicated urinary tract infection. Third pneumonitis based on imaging and she is requiring supplemental oxygen. We will continue a combination medical regimen, increase the oral vancomycin to 500 p.o. q.i.d. At this point, it is difficult to ascertain whether she will respond, I would consider fidaxomicin, absence of improvement and/or potentially fecal transplant if this appears to be a more recurrent issue. Secondly, we will add additional antimicrobial therapy to cover pneumonitis just with discontinuing ceftriaxone, initiate cefepime, single dose of fluconazole as well given the micro and the urinalysis. She remains somewhat tenuous at this point. She is clearly malnourished. Try to optimize her nutritional status. We will add incentive spirometry, not quite clear what her baseline is at this point, earlier, urine function has deteriorated over the course of the last 2 weeks, [facility] [address] [place] [address] CONSULTATION Name: LESLY MILLER Room #: 458-P ADM IN M.R.#: [id number] Admission: 12/12/20 Attend Phys: Trevor North Discharge: Date of : 39 Report #: [id number] likely due to prerenal azotemia, suspect on the basis of dehydration. I would expect it to correct. Continue to monitor expectantly. <ELECTRONICALLY SIGNED> By: Bar Hartman MD 12/13/20 1636 [id number] Bar Hartman MD /nt
[2020-12-13 16:39] LABS: ALBUMIN 1.6 g/dL (3.4-5.0); CALCIUM 8.6 mg/dL (8.5-10.1); CREATININE 4.2 mg/dL (0.6-1.0); MAGNESIUM 1.6 mg/dL (1.8-2.4); PHOSPHORUS 4.8 mg/dL (2.6-4.7); POTASSIUM 4.5 mmol/L (3.5-5.1)
[2020-12-13 20:00] VITALS: BP 105/46
[2020-12-14 06:30] LABS: HEMATOCRIT 29.9 % (37.0-47.0); HEMOGLOBIN 9.2 gm/dL (12.0-15.0); MCHC 30.6 g/dL (28.0-37.0); MCV 91.4 fL (80.0-100.0); RBC 3.27 mil/uL (4.20-5.00); RDW 17.9 % (10.5-14.5); WBC 21.8 thou/uL (4.0-11.0)
[2020-12-14 06:37] LABS: CALCIUM 8.7 mg/dL (8.5-10.1); CREATININE 4.4 mg/dL (0.6-1.0)
[2020-12-14 06:39] LABS: ALBUMIN 1.4 g/dL (3.4-5.0); CALCIUM 8.5 mg/dL (8.5-10.1); CREATININE 4.4 mg/dL (0.6-1.0); PHOSPHORUS 4.4 mg/dL (2.6-4.7)
[2020-12-14 06:40] LABS: POTASSIUM 3.4 mmol/L (3.5-5.1); POTASSIUM 3.5 mmol/L (3.5-5.1)
[2020-12-14 07:35] VITALS: BP 105/49
--- NOTE | 2020-12-14 09:21 | NUR ---
[facility] 1900. PT/VITALS STABLE. INTERMITTENT BUTT PAIN WITH TYLENOL/REPOSITION FOR RLIEF. ASSESSMENT CHARTED. PROGRESING SLOWLY WITH POC. BS CONSISTENTLY LOW. PT NEEDS ENCOURAGEMENT TO EAT/POOR APPETITE. NO DISTRESS NOTED THROUGH THE NIGHT. PLAN IS TO CONTINUE WITH ABX TREATMENT AND FOLLOW WITH POC
--- NOTE | 2020-12-14 15:45 | NUR ---
CARE TEAM INDICATED THAT PT IS PROGRESSING TOWARD GOAL OF DISHCARGE. PT IS WORKING WITH PT AND OT. CARE TEAM MONITORING CREATININE WHICH IS CURRENTLY HIGH. NEPH CONSULTED AND FOLLOWING. PT ON ORAL VANC. CM PROVIDED UPDATE TO [facility]. CM TO FOLLOW INDICATED WITH DC PLANNING.
[2020-12-14 17:50] VITALS: BP 130/42; BP 89/36
--- NOTE | 2020-12-14 20:13 | NUR ---
Received awake on bed. Due medications given as prescribed, able to swallow meds w/o difficulty. On O2 at 3lpm via nasal cannula. On MS, no complains and signs of chest pain, crushing sensation and heaviness. Assisted in ADLs. On carb controlled diet- encouraged and assisted in eating and drinking, with poor appetite; no nausea, no vomiting and no abdominal pain noted. Aguirre inserted- draining well; output measured and recorded accordingly. With L upper arm midline in place; NS at 125cc/hr, infusing well. Pt turned on her sides, may refuse at times. With excoriation on her buttocks, Z guard applied to area. Maintained on isolation due to Cdiff, protocol observed. Complained of pain, due PRN pain meds given as prescribed. Urine specimen sent to lab post insertion. Pt still having multiple loose stools- on PO Vanc. Pt's son visitied this PM, update given. To continue monitoring patient.
[2020-12-14 20:46] LABS: PROT/CREAT RATIO 0.4; URINE CREATININE-RANDOM* 246.8 mg/dL; URINE PROTEIN-RANDOM* 104.5 mg/dL (<11.9)
[2020-12-14 20:59] VITALS: BP 113/58
[2020-12-15 05:51] LABS: HEMATOCRIT 29.1 % (37.0-47.0); HEMOGLOBIN 9.3 gm/dL (12.0-15.0); MCH 28.9 pg (26.0-34.0); MCHC 31.8 g/dL (28.0-37.0); MCV 90.8 fL (80.0-100.0); PLATELET COUNT 247 thou/uL (150-400); RBC 3.21 mil/uL (4.20-5.00); RDW 17.9 % (10.5-14.5); WBC 21.9 thou/uL (4.0-11.0)
[2020-12-15 06:16] LABS: ALBUMIN 1.4 g/dL (3.4-5.0); CALCIUM 8.5 mg/dL (8.5-10.1); CREATININE 4.6 mg/dL (0.6-1.0); PHOSPHORUS 4.3 mg/dL (2.6-4.7); POTASSIUM 3.3 mmol/L (3.5-5.1); TOTAL BILIRUBIN 0.4 mg/dL (0.2-1.0); TOTAL PROTEIN 4.7 g/dL (6.4-8.2)
--- NOTE | 2020-12-15 06:35 | NUR ---
Assumed pt care at 1900. A/OX3,forgetful,drowsy and moans with movement but denies pain on assessment. Pt remains on special contact isolation dfor cdiff;has had 3 episodes of incontinence with loose stools. Aguirre to DD with little amount of urine all shift, bladder scan done and only showed 19cc residual x2,will relay to oncoming nurse/MD. Excoriation on buttocks,pericare done as needed with Zguard applied. Resting quietly will continue to monitor pt.
[2020-12-15 07:39] VITALS: BP 134/53
[2020-12-15 08:55] LABS: ABSOLUTE NEUTROPHILS 20.6 thou/uL (1.4-8.2)
[2020-12-15 08:57] LABS: ANISOCYTOSIS 1+
[2020-12-15 08:58] LABS: POIKILOCYTOSIS SLIGHT; POLYCHROMASIA OCCASIONAL
[2020-12-15 08:59] LABS: HYPOCHROMASIA 2+
--- NOTE | 2020-12-15 15:11 | NUR ---
HOSPITALIST INDICATED THAT HE CONSULTED DR. MICHEL FOR HOSPICE/PALLIATIVE CARE VISIT. HE WAS GOING TO CALL PT'S SON TO DISCUSS GOALS OF CARE AND CODE STATUS. CM TO FOLLOW INDICATED WITH DC PLANNING. PT HAD BEEN AT [facility] SKILLED PRIOR TO ADMISSION.
[2020-12-15 15:45] VITALS: BP 117/53
--- NOTE | 2020-12-15 16:08 | NUR ---
FAXED CLINICAL UPDATE TO ROBERT/CHIQU[facility] SPOKE WITH ROEL IN ADM SHE RECEIVED UPDATE.
--- NOTE | 2020-12-15 16:43 | NUR ---
ASSUMED CARE OF PATIENT AT SHIFT CHANGE. ASSESSMENT CHARTED. MEDS ADMINISTERED PER EMAR IN APPLESAUCE; PATIENT RELUCTANT TO TAKE MEDS. PATIENT VOICES PAIN WHEN BEING CLEANED UP. CONTINUES TO HAVE LOOSE STOOLS W C-DIFF ODOR. NEPHROLOGY SAW PATIENT AND SUGGESTED PALLIATIVE CARE. DR. MICHEL SAW PATIENT AND SPOKE TO BOOT LINER MAKER ON UNIT. WILL SPEAK TO PATIENTS SON AND UPDATE ON PLAN. PATIENT BEING REPOSITIONED Q2HRS TOLERATED. BARRIER CREAM APPLIED TO EXCORIATED AREAS AROUND PERINEAL REGION AND PANNIS. SILVA DRAINING AND INTACT; KIDNEY FAILURE AND FREQUENT STOOLS CAUSE OF LOW OUTPUT PER NEPHROLOGY. PATIENT DISPLAYING FLAT AFFECT W SIGNS OF POSSIBLE DEPRESSION. APPETITE POOR BUT FSBS STABLE THIS DAY. FALL PRECAUTIONS IN PLACE. WILL CONTINUE TO MONITOR AND FOLLOW PLAN OF CARE
[2020-12-15 19:18] VITALS: BP 142/47
--- NOTE | 2020-12-16 03:50 | NUR ---
ASSESSMENT DOCUMENTED.PT BEEN RESTING IN NO ACUTE DISTRESS.VSS.AOX3 W/INTERMITTENT CONFUSION.ISOLATION MAINTAINED D/T C-DIFF.DIARRHEA X1 THIS SHIFT.SILVA DD.LASIX X1 GIVEN PER DR'S ORDERS.INADEQAUTE UO IN THE SEETING OF CKD.RENAL FOLOWING.SON CALLED AND UPDATED WITH POC.PT DENIES ANY CONCERNS AT THIS TIME.WILL CONT W/POC.
[2020-12-16 07:50] VITALS: BP 106/59
[2020-12-16 09:55] LABS: BE(vivo) -5.4 mmol/L (-2 to +3); HCO3 21.4 mmol/L (22.0-26.0); PCO2 47.4 mmHg (35.0-45.0); PO2 64.8 mmHg (80.0-100.0); sO2 89.8 % (92.0-98.0)
[2020-12-16 09:59] LABS: pH 7.272 (7.360-7.450)
[2020-12-16 16:26] VITALS: BP 120/52
--- NOTE | 2020-12-16 19:00 | NUR ---
PATIENT NOT PROGRESSING WELL. DR MICHEL SPOKE TO SON AND DISCUSSED HOSPICE CARE. PATIENT REFUSING TO EAT OR DRINK. SON AT BEDSIDE. CL FSBS OF 31; REFUSED TO DRINK APPLE JUICE OR CONSUME GLUCOSE GEL. PRIOVIDER AWARE. DEXTROSE 10% HUNG AND [place] ADMINISTERED. MIDLINE INFILTRATED. NEW PIV STARTED BY VAT ON R FA. REFUSING MEDICATIONS DESPITE EDUCATION ON RISKS OF MISSING DOSES. STATES SHE IS "TIRED OF THIS". WILL ENDORSE TO NOC RN
--- NOTE | 2020-12-16 19:57 | NUR ---
PT ML INFILTRATED. PT HAS ALMOST NOTHING VISIBLE TO CANNULATE, ASSESSED WITH US. RIGHT ANTERIOR FOREARM 22GX2.5IN PIV PLACED, USING US GUIDANCE. SPOKE WITH DARRIN BENAVIDEZ AND DISCUSSED THAT PT WOULD NEED CVL IF FURTHER ACCESS NEEDED.
--- NOTE | 2020-12-17 05:19 | NUR ---
Pt. with a low blood sugar and bag of dextrose hung. Pt. is asymtomatic. She also refused to have her blood sugar rechecked. Tanja JOHNSTON called and notified with orders to hang D5 with half normal saline. Pt. refusing her po meds. She has been incontinent of 2 loose stools and yolanda care given. Barrier cream applied to buttocks. Bed alarm is on.
[2020-12-17 08:40] VITALS: BP 118/47
[2020-12-17 12:33] LABS: HEMATOCRIT 33.2 % (37.0-47.0); HEMOGLOBIN 10.1 gm/dL (12.0-15.0); MCH 28.4 pg (26.0-34.0); MCHC 30.6 g/dL (28.0-37.0); MCV 92.9 fL (80.0-100.0); RBC 3.57 mil/uL (4.20-5.00); WBC 20.2 thou/uL (4.0-11.0)
[2020-12-17 12:43] LABS: ALBUMIN 1.6 g/dL (3.4-5.0); CREATININE 4.7 mg/dL (0.6-1.0); PHOSPHORUS 4.5 mg/dL (2.6-4.7); POTASSIUM 3.5 mmol/L (3.5-5.1)
--- NOTE | 2020-12-17 12:56 | HC ---
[facility] [place] [address] CONSULTATION Name: LESLY MILLER Room #: 458-P ADM IN M.R.#: [id number] Admission: 12/12/20 Attend Phys: Trevor North Discharge: Date of : 39 Report #: [id number] THIS REPORT FOR: cc: Hilario Mcpherson MD, Christopher B. MD Althoff, Jeffrey R. MD ~ DATE OF SERVICE: 12/13/2020 CHIEF COMPLAINT: Gluteal pressure ulcerations. HISTORY OF PRESENT ILLNESS: This is an 80-year-old female patient who presented to the hospital from a custodial facility. She has a history of known C. diff as well as history of acute kidney injury. We saw her recently during her hospitalization. She is a very poor historian. She is aware of the ulcerations on her buttocks. She is currently admitted with sepsis, UTI, acute kidney injury. PAST MEDICAL HISTORY: Positive for history of C. diff, enterocolitis, history of pneumonia, UTI, acute kidney injury, chronic kidney disease, type 2 diabetes mellitus, coronary artery disease, hypertension and hyperlipidemia. ALLERGIES: LISINOPRIL AND SPIRONOLACTONE. MEDICATIONS: Include Combivent, Zyloprim, Coreg, Cymbalta, ferrous sulfate, folic acid, meclizine, nifedipine, pantoprazole, sucralfate, tramadol, vancomycin. SOCIAL HISTORY: The patient currently has been living in a nursing care facility. Negative for alcohol or tobacco use. FAMILY HISTORY: Unknown. REVIEW OF SYSTEMS: Really not obtainable other than that covered with a history of present illness. The patient is a very poor historian and not able or willing to answer most questions. PHYSICAL EXAMINATION: VITAL SIGNS: At this time include temperature of 36.3, pulse 110, respiratory rate of 18, blood pressure 109/59. GENERAL: This is a chronically ill-appearing female patient who appears to be in mild distress. HEENT: Head normocephalic. Nose and throat are clear. NECK: Supple. LUNGS: Diminished. HEART: Sounds are distant, likely due to her super morbid obesity. [facility] [address] [place] [address] CONSULTATION Name: LESLY MILLER Room #: 458-P [facility] IN M.R.#: [id number] Admission: 12/12/20 Attend Phys: Trevor North Discharge: Date of : 39 Report #: [id number] ABDOMEN: Obese, soft, nontender. EXTREMITIES: Gluteal region demonstrates shallow stage 3 pressure ulcers to the buttocks bilaterally. Lower extremities show some mild to moderate edema, no open ulcerations. NEUROLOGIC: The patient is moving symmetrically. She does answer brief questions. LABORATORY DATA: Include sodium 137, potassium 3.7, chloride 102, CO2 of 27, BUN 54, creatinine 4.3, glucose 77. Albumin is 1.7. White blood cell count 21.1 with a hemoglobin of 10.1. CLINICAL IMPRESSION: 1. Sepsis and urinary tract infection. 2. Stage 3 gluteal pressure ulcerations. 3. History of chronic kidney disease. 4. Severe protein-calorie malnutrition. 5. Super morbid obesity. 6. Type 2 diabetes mellitus. RECOMMENDATIONS: At this point in time, we will recommend a low air loss pump to her bed, q. 2 hour turning and positioning, zinc oxide barrier cream b.i.d. and p.r.n. Continue with the medical management of her underlying medical issues, antibiotics for sepsis. We appreciate being asked to see her in consultation. We will follow closely in the hospital. <ELECTRONICALLY SIGNED> By: Kavon Manzo MD 12/17/20 1256 1619 1713 Kavon Manzo MD /nt
[2020-12-17 13:32] VITALS: BP 143/50
[2020-12-17 16:14] VITALS: BP 124/52
--- NOTE | 2020-12-17 16:15 | NUR ---
Received awake on bed. On MS, not on telemetry; no complains and signs of chest pain, crushing sensation and heaviness. Assisted in ADLs. On O2 at 3lpm via nasal cannula. On carb controlled diet- refusing meals, very poor appetite; encouraged and assisted in eating and drinking. On blood sugar monitoring, taken and recorded accordingly. With alfonso in place- draining well; output measured and recorded accordingly. With D5NS at 75cc/hr, infusing well at R FA; shifted to D5 at 75cc/hr as per Dr North. Falls bundle in place. Turned on her sides- pt refusing at times. With son at bedside, update given. Maintained on isolation due to Cdiff. Dr North informed re: the following: swelling at L arm- ?ultrasound, a/w further orders, refusing meds, poor appetite. Pt had a bowel movement-charted. Possible discharge on saturday with hospice. To continue monitoring patient.
--- NOTE | 2020-12-18 04:39 | NUR ---
Pt. rested quietly during the shift when checked on during frequent rounds. She has been drowsy, but easily to arouse. No c/o pain. Refuses meds and some cares. Turned and repositioned for comfort. Bed alarm is on.
[2020-12-18 08:41] VITALS: BP 109/54
[2020-12-18] MEDS ORDERED: MSL20MG/ML SUBLING (10:16)
[2020-12-18] MEDS ORDERED: ZOFRAN 4 MG ORAL4 MG PO (10:17)
[2020-12-18] MEDS ORDERED: ATIVAN1 M1 PO (10:18)
--- NOTE | 2020-12-18 16:44 | NUR ---
Assumed pt care this am, blood sugar was at 31 several interventions done to reach 125 as per emar, MD informed. Pt is on comfort care, son at the bed side. Pt refused all meals and PO meds, requested for oral meds to be converted to IV, MD aware. POC followed, pain medication given as per emar, partial relief is noted. Pt is on comfort care.
[2020-12-18 19:12] VITALS: BP 96/65
--- NOTE | 2020-12-19 06:47 | NUR ---
PT LYING IN BED. COMFORT CARE ORDERED. POSSIBLE DISCHARGE 12/19 WITH HOSPICE. FREQUENT OBSERVATION.
[2020-12-19 07:19] VITALS: BP 106/46
--- NOTE | 2020-12-19 10:17 | NUR ---
FAXED REFERRAL TO [facility]. WILL CONFIRM WITH YVETTE/LIAISON THAT THEY RECEIVED. [facility] NEEDED TODAY. [facility] P [phone]; FAX [phone]
--- NOTE | 2020-12-19 11:41 | NUR ---
Note Given: Y Facility List Provided:Y Edilma Calle: None Selected
--- NOTE | 2020-12-19 14:19 | NUR ---
PATIENT WITH PRESISTENT LOW BLOOD SUGARS, CONFIRMED THAT PATIENT IS COMFORT CARE FROM DR. MCCLAIN BUT FAMILY AND DOCTORS WISHES ARE TO CONTINUE TO TREAT BLOOD SUGARS UNTIL PATIENT IS HOME ON HOSPICE. MULTIPLE CRITICAL BLOOD GLUCOSE RESULTS COMMUNICATED TO DR. MCCLAIN. NEW ORDERS RECIEVED.
--- NOTE | 2020-12-19 15:47 | NUR ---
REFERRAL SENT AGAIN TO [facility]. IT HAD BEEN SENT SATURDAY BUT THEY STATED THEY HADN'T RECIEVED IT. NURSE VISITED BETWEEN [phone] WITH PT AND SON AT BEDSIDE. THEY HAD DISCUSSED THAT PT MAY NOT SURVIVE TRANSPORT AND WOULD LIKELY DC HOME TO IMIDIATE BAUER CARE WHICH THE HOSPICE WOULD BE WILLING AND ABLE TO PROVIDE AND SON WANTED. SON SPOKE WITH OTHER FAMILY AND DETERMINED THAT HE WOULD PREFER THAT PT BE MADE FULL COMFORT MEASURES HERE AT HOSPITAL AND NOT DISHCARGE HOME WITH HOSPICE SERVICES. PHYSICAIN AND NURSE AWARE AND IT IS ANTIPATED THAT PT WILL REMAIN HERE AND PASS IN THE NEAR FUTURE. CM FOLLOWING [facility]AR[facility] DC PLANNING.
--- NOTE | 2020-12-19 19:59 | NUR ---
AFTER DISCUSSION WITH BLOCK PILER, SON DECIDED HE WOULD LIKE TO KEPT PATIENT HERE IN THE HOSPITAL WITH COMFORT ORDERS. HIS CONCERN IS THE TRANSPORT BEING UNCOMFORTABLE TO THE PATIENT. SPOKE WITH DR. MCCLAIN ABOUT THIS. ORDERS TO D/C ALL ACCUCHECKS, LABS, AND IV FLUIDS. PRN FENTANYL AND ATIVAN ORDERED FOR COMFORT. SON AT BEDSIDE THROUGH OUT THE SHIFT. 2L NC FOR COMFORT.
[2020-12-19 20:57] VITALS: BP 111/92
--- NOTE | 2020-12-20 03:15 | NUR ---
PT CARE ASSUMED WITH SON AND DAUTHER INLAW AT BEDSIDE WITH PT.PT IS UNRESPONSIVE AND ON COMFORT CARE.PT HAS FENTANYL Q1H AND ATIVAN Q2H FOR COMFORT CARE.PT IS ON 2L O2 PER NASAL CANULA AND SILVA CATHETER.WILL CONTINUE TO MONITOR PER POC
--- NOTE | 2020-12-20 11:15 | NUR ---
Nutrition: Reassessment deferred as pt is comfort care.
[2020-12-20 12:36] VITALS: BP 73/37
--- NOTE | 2020-12-20 13:13 | NUR ---
ASSUMED PT CARE AROUND 0710. PT ON ISOLATION FOR C-DEFF.PT ON COMFORT CARE. IV LF FA AND SALINE LICKED.LBM TODAY MORNING. ON 3L/O2/NC. SILVA CATHETER IN PLACE. PT'S SON IN THE ROOM. HOURLY ROUNDING DOING. FALL PRECT IN PLACE. WILL CONT TO MONITOR.
[2020-12-20 16:08] VITALS: BP 87/42
[2020-12-20 20:16] VITALS: BP 100/42
--- NOTE | 2020-12-21 02:04 | NUR ---
PT CARE ASSUMED WITH FAMILY AT BEDSIDE.PT IS UNRESPONSIVE .PT IS ON COMFORT CARE.PT IS ON FENTANYL AND ATIVAN PRN FOR COMFORT MEASURES.PT IS ON 3L OF O2 FOR COMFORT CARE.PT HAS SILVA CATHETER IN PLACE AND ON CDIFF ISOLATION PRECAUTIONS.IV ACCESS ON RT FA SL.WILL CONTINUE TO MONITOR POC
[2020-12-21 07:36] VITALS: BP 93/44
--- NOTE | 2020-12-21 13:40 | NUR ---
CARE TEAM INDICATED THAT PT MAY BE ABLE TO DC HOME ONTO HOSPICE SERVICES THIS DAY. CM SPOKE WITH PT'S SON AND [facility] AND THEY WERE BOTH AGREEABLE. CM FAXED UPDATED CLINICAL TO [facility] AND UPDATED NURSE LIAISON. SON WENT TO PT'S HOME TO MOVE FURNITURE AROUND TO RECEIVED DME[place] [id number] [address], [id number]. [employer] FORM COMPLETED. JUST NEEDS TO BE CALLED AND SCHEDULED ONCE DME IS DELIVERED. OUTSIDE HOSPITAL DNR FORM SIGNED. ORDERS WILL NEED TO BE FAXED TO .
[2020-12-21 13:44] VITALS: BP 93/44
--- NOTE | 2020-12-21 20:13 | NUR ---
Received drowsy; on comfort care. On MS, not on telemetry; no signs of chest pain, crushing sensation and heaviness. On O2 at 2lpm via nasal cannula. Mouth care done. With alfonso in place; very minimal output noted. Pt turned on her sides. Checked regularly and changed as needed. With son at bedside, update given. Dr North talked to patient's son re: home with hospice; son agreeable re: this- CM aware and set up hospice. Transport set up at 1700. IV discontinued, no telemetry noted. Discharge instruction and forms included in packet and given to KC. Pt transferred to [facility] safely. Brought out of the unit with her personal belongings. Patient discharged home with hospice care.
== END 2020-12-21 17:20 | disposition hospice, home (50) | DRG 871 ==
LOC: ER 18:27 → 4W 23:05 → EROBS 23:05 → 4W 23:07
PROVIDERS: Emergency Medicine; Internal Medicine Nephrology; Nurse Practitioner Family; ADMIT Hospitalist; ATTEND Hospitalist
PROC: 05HF33Z Insertion of Infusion Device into Left Cephalic Vein, Percutaneous Approach (ICD-10-PCS; principal; 2020-12-13)
PROC: B54NZZA Ultrasonography of Left Upper Extremity Veins, Guidance (ICD-10-PCS; principal; 2020-12-13)
DX: A41.9 Sepsis, unspecified organism (principal); L89.153 Pressure ulcer of sacral region, stage 3; L89.303 Pressure ulcer of unspecified buttock, stage 3; J18.9 Pneumonia, unspecified organism; E43 Unspecified severe protein-calorie malnutrition; Z68.42 Body mass index [BMI] 45.0-49.9, adult; I13.0 Hypertensive heart and chronic kidney disease with heart failure and stage 1 through stage 4 chronic kidney disease, or unspecified chronic kidney disease; A04.72 Enterocolitis due to Clostridium difficile, not specified as recurrent; N17.9 Acute kidney failure, unspecified; N39.0 Urinary tract infection, site not specified; J96.11 Chronic respiratory failure with hypoxia; G93.40 Encephalopathy, unspecified; E11.22 Type 2 diabetes mellitus with diabetic chronic kidney disease; I25.10 Atherosclerotic heart disease of native coronary artery without angina pectoris; M10.9 Gout, unspecified; E78.5 Hyperlipidemia, unspecified; F32.9 Major depressive disorder, single episode, unspecified; M19.90 Unspecified osteoarthritis, unspecified site; E86.0 Dehydration; I50.9 Heart failure, unspecified; G47.00 Insomnia, unspecified; D50.9 Iron deficiency anemia, unspecified; M81.0 Age-related osteoporosis without current pathological fracture; N18.30 Chronic kidney disease, stage 3 unspecified; Z51.5 Encounter for palliative care; Z66 Do not resuscitate; Z86.16 Personal history of COVID-19; Z79.899 Other long term (current) drug therapy; Z85.41 Personal history of malignant neoplasm of cervix uteri; Z88.8 Allergy status to other drugs, medicaments and biological substances; Z85.3 Personal history of malignant neoplasm of breast
CPT/HCPCS: 10047; 27000